=== PATIENT | male | born 1970 | race Caucasian/White ===

== ENCOUNTER 2020-05-27 19:41 | Emergency (ER) | payer MEDICAID ==
[~2020-05-27] VITALS: Ht 188 cm; Wt 83.9 kg
--- NOTE | 2020-05-27 20:00 | NUR ---
PATIENT CAME TO THE ER BED 7 C/O "FEELING SICK" PATIENT STATES THAT HE HAD DIARRHEA AND LOWER ABDOMINAL PAIN FOR THE PAST 3 x DAYS. PATIENT STATES THAT HE PREVIOUSLY HAD COVID AND HAD NO SYMPTOMS. PATIENT DENIES ANYONE LIVING UNDER THE SAME ROOF HIM WITH THE SAME SYMPTOMS. PATIENT IS AAOX4. BREATHING EVENLY AND UNALBORED ON ROOM AIR AT 98%. PATIENT IS CONNECTED TO THE MONITOR.
--- NOTE | 2020-05-27 20:11 | NUR ---
PATIENT'S BLOOD COLLECTED AND SENT TO THE LAB.
[2020-05-27] MEDS ORDERED: ONDANSETRON HCL/PF 4 MG/2 ML VIAL ONE (20:12)
[2020-05-27 20:20] LABS: BASOPHILS % (AUTO) 0.4 % (0.0-2.0); EOSINOPHILS % (AUTO) 3.4 % (0.0-6.0); HEMATOCRIT 37 % (39-51); HEMOGLOBIN 12.6 g/dL (13.5-17.5); LYMPHOCYTES # (AUTO) 0.9 /CMM (0.8-4.8); LYMPHOCYTES % (AUTO) 22.1 % (20.0-44.0); MEAN CORPUSCULAR HGB CONC 34 g/dl (31.0-36.0); MEAN CORPUSCULAR VOLUME 91 fL (80-96); MONOCYTES # (AUTO) 0.3 /CMM (0.1-1.30); MONOCYTES % (AUTO) 7.9 % (2.0-12.0); NEUTROPHILS # (AUTO) 2.7 /CMM (1.8-8.9); NEUTROPHILS % (AUTO) 66.2 % (43.0-81.0); PLATELET COUNT (AUTO) 231 /CMM (150-450); RED BLOOD CELL COUNT(AUTO) 4.05 MIL/uL (4.5-6.0); WHITE BLOOD COUNT (AUTO) 4.1 K/uL (4.3-11.0)
[2020-05-27] MEDS ORDERED: ONDANSETRON HCL/PF 4 MG/2 ML VIAL IVP ONE (20:30)
[2020-05-27] MEDS ORDERED: IV NS 0.9% 1,000 ML BAG IV ONE (20:30)
[2020-05-27 20:36] LABS: ALANINE AMINOTRANSFERASE 28 U/L (12-78); ALBUMIN 3.4 g/dL (3.4-5.0); ALKALINE PHOSPHATASE 58 U/L (46-116); ASPARTATE AMINOTRANSFERASE 22 U/L (15-37); BILIRUBIN,DIRECT 0.1 mg/dL (0.0-0.2); BILIRUBIN,TOTAL 0.2 mg/dL (0.2-1.0); CALCIUM, SERUM 8.8 mg/dL (8.5-10.1); CARBON DIOXIDE 31 mmol/L (21-32); CHLORIDE 104 mmol/L (98-107); CREATININE 0.7 mg/dL (0.6-1.3); GLUCOSE 120 mg/dL (74-106); LIPASE 82 U/L (73-393); POTASSIUM 3.6 mmol/L (3.5-5.1); SODIUM SERUM 143 mmol/L (136-145); TOTAL PROTEIN, SERUM 6.9 g/dL (6.4-8.2); UREA NITROGEN, BLOOD 20 mg/dL (7-18)
[2020-05-27] MEDS ORDERED: DOXY100C2 PO (22:09)
[2020-05-27] MEDS ORDERED: ONDA4TAB11 PO (22:09)
[2020-05-27 23:31] VITALS: BP 125/76
== END 2020-05-27 22:32 | disposition home or self-care (01) ==
LOC: ER 19:41
DX: B34.9 Viral infection, unspecified (principal); R11.2 Nausea with vomiting, unspecified; R19.7 Diarrhea, unspecified; Z20.822 Contact with and (suspected) exposure to COVID-19; R05 Cough; R91.8 Other nonspecific abnormal finding of lung field; R03.0 Elevated blood-pressure reading, without diagnosis of hypertension
CPT/HCPCS: 36415; 71045; 74176; 80048; 80076; 83605; 83690; 84484; 85025; 87040 ×2; 87426; 93005; 96361; 96374; 99285; C9803 ×2; J2405; J7030; U0003

== ENCOUNTER 2020-09-20 01:31 | Emergency (ER) | payer MEDICAID ==
[~2020-09-20] VITALS: Ht 188 cm; Wt 83.9 kg
[~2020-09-20 01:31] MED LIST: DOXY100C2 PO; ONDA4TAB11 PO
[2020-09-20 01:58] VITALS: BP 158/112
--- NOTE | 2020-09-20 02:00 | NUR ---
PATIENT BIBSELF C/O NAUSEA +HEADACHE S/P SLIP AND FALL ON ST[place] HILL WHILE HELPING FRIEND. -HEAD TRAUMA +C/O BACK PAIN. PATIENT IS A/O X 4, RR EVEN AND UNLABORED, NO SIGNS OF SOB NOTED, PATIENT VSS, CONNECTED TO MONITOR.
[2020-09-20] MEDS ORDERED: KETOROLAC TROMETHAMINE INJ 30 MG/ML VIAL ONE (02:13)
--- NOTE | 2020-09-20 02:17 | NUR ---
PATIENT TAKEN TO CT
--- NOTE | 2020-09-20 02:22 | NUR ---
PATIENT RETURNED FROM CT
[2020-09-20] MEDS: KETOROLAC TROMETHAMINE INJ 30 MG/ML VIAL IM ONE (02:32)
[2020-09-20] MEDS ORDERED: ONDA4TAB11 PO (02:48)
[2020-09-20] MEDS ORDERED: IBUP-1957 PO (02:48)
[2020-09-20] MEDS ORDERED: CYCL5TAB PO (02:48)
--- NOTE | 2020-09-20 03:00 | NUR ---
Johnathan mcdonald in [facility] - 09/20/20 at 0300 by OZZY DC
--- NOTE | 2020-09-20 03:01 | NUR ---
Patient discharged to home in stable condition. Written and verbal after care instructions given. Patient verbalizes understanding of instruction.
--- NOTE | 2020-09-20 03:01 | NUR ---
Patient is getting picked up by an [employer].
== END 2020-09-20 03:03 | disposition home or self-care (01) ==
LOC: ER 01:31
DX: S09.8XXA Other specified injuries of head, initial encounter (principal); F07.81 Postconcussional syndrome; I10 Essential (primary) hypertension; Z79.899 Other long term (current) drug therapy; W01.0XXA Fall on same level from slipping, tripping and stumbling without subsequent striking against object, initial encounter; Y93.89 Activity, other specified; Y92.89 Other specified places as the place of occurrence of the external cause; Y99.8 Other external cause status
CPT/HCPCS: 70450; 72125; 96372; 99285; J1885

== ENCOUNTER 2020-09-24 22:41 | Emergency (ER) | payer MEDICAID, OTHER ==
[~2020-09-24] VITALS: Ht 190.5 cm; Wt 83.9 kg
[2020-09-24 22:41] VITALS: BP 165/106
[~2020-09-24 22:41] MED LIST changes: +CYCL5TAB PO; +IBUP-1957 PO
[2020-09-24 23:45] LABS: ABG BASE EXCESS 3.2 mmol/L; ABG OXYGEN SATURATION 97.3 % (92.0-98.5); ABG PCO2 39.1 mmHg (35.0-45.0); ABG PH 7.459 (7.350-7.450); MetHb 0.5 % (0.0-1.5); O2Hb 95.8 % (94.0-97.0); SITE, ABG Right Radial; VENT MODE, BG Room Air
== END 2020-09-25 00:34 | disposition home or self-care (01) ==
LOC: ER 22:50
DX: T59.811A Toxic effect of smoke, accidental (unintentional), initial encounter (principal); I10 Essential (primary) hypertension; Y92.89 Other specified places as the place of occurrence of the external cause
CPT/HCPCS: 36600

== ENCOUNTER 2020-10-30 16:30 | Emergency (ER) | payer OTHER ==
[~2020-10-30] VITALS: Ht 177.8 cm; Wt 74.8 kg
[2020-10-30 17:21] VITALS: BP 136/105
[2020-10-30] MEDS ORDERED: BENZ-13 PO (17:55)
[2020-10-30] MEDS ORDERED: GUAI5SYR PO (17:55)
--- NOTE | 2020-10-30 18:21 | NUR ---
COVID SWAB DONE & SENT TO LAB. Patient discharged to home in stable condition. Written and verbal after care instructions given. Patient verbalizes understanding of instruction.
== END 2020-10-30 18:22 | disposition home or self-care (01) ==
LOC: ER 16:37
DX: J06.9 Acute upper respiratory infection, unspecified (principal); Z20.822 Contact with and (suspected) exposure to COVID-19; F17.210 Nicotine dependence, cigarettes, uncomplicated; I10 Essential (primary) hypertension
CPT/HCPCS: 99283; 99406; C9803; U0003

== ENCOUNTER 2022-05-01 19:56 | Emergency (ER) | payer OTHER ==
[~2022-05-01] VITALS: Ht 188 cm; Wt 88.5 kg
[~2022-05-01 19:56] MED LIST changes: +BENZ-13 PO; +GUAI5SYR PO
--- NOTE | 2022-05-01 20:24 | NUR ---
BIBFRIEND. SYNCOPE EPISODE X 1 @ 1950, NO BLOOD THINNER USE. ENDORSES L SIDED C/P RADIATING TO L ARM PRIOR TO SYNCOPAL EPISODE X1400. STATES HE HAS HAD PAIN LIKE THIS IN THE PAST AND WAS DX WITH STRESS INDUCED ANXIETY. STATES HE HAS HAD RECENT STRESSORS IN HIS LIFE. AWAKE AND ALERTX4 BREATHING UNLABORED. V/S WNL.
--- NOTE | 2022-05-01 20:32 | NUR ---
20G IV STARTED AT . BLOOD DRAWN AND SENT TO LAB
[2022-05-01 20:46] LABS: BASOPHILS % (AUTO) 0.6 % (0.0-2.0); EOSINOPHILS % (AUTO) 2.3 % (0.0-6.0); HEMATOCRIT 39 % (39-51); HEMOGLOBIN 12.6 g/dL (13.5-17.5); LYMPHOCYTES # (AUTO) 0.8 K/uL (0.8-4.8); LYMPHOCYTES % (AUTO) 11.5 % (20.0-44.0); MEAN CORPUSCULAR HGB CONC 33 g/dl (31.0-36.0); MEAN CORPUSCULAR VOLUME 89 fL (80-96); MONOCYTES # (AUTO) 0.5 K/uL (0.1-1.30); NEUTROPHILS # (AUTO) 5.3 K/uL (1.8-8.9); NEUTROPHILS % (AUTO) 77.6 % (43.0-81.0); PLATELET COUNT (AUTO) 301 K/uL (150-450); RED BLOOD CELL COUNT(AUTO) 4.36 MIL/uL (4.5-6.0); WHITE BLOOD COUNT (AUTO) 6.8 K/uL (4.3-11.0)
[2022-05-01 21:13] LABS: CALCIUM, SERUM 8.7 mg/dL (8.5-10.1); CARBON DIOXIDE 28 mmol/L (21-32); CHLORIDE 102 mmol/L (98-107); CREATININE 0.8 mg/dL (0.6-1.3); GLUCOSE 107 mg/dL (74-106); POTASSIUM 3.8 mmol/L (3.5-5.1); SODIUM SERUM 137 mmol/L (136-145); UREA NITROGEN, BLOOD 14 mg/dL (7-18)
[2022-05-01] MEDS ORDERED: IV NS 0.9% 1,000 ML IV ONE (21:30)
[2022-05-01] MEDS ORDERED: ONDA4TAB5 PO (23:20)
[2022-05-01] MEDS ORDERED: FLUO40CA8 PO (23:29)
--- NOTE | 2022-05-01 23:36 | NUR ---
Patient discharged to home in stable condition. Written and verbal after care instructions given. Patient verbalizes understanding of instruction.IV removed. Catheter intact and site benign. Pressure and 4x4 applied to site. No bleeding noted.
[2022-05-01 23:39] VITALS: BP 144/57
== END 2022-05-01 23:40 | disposition home or self-care (01) ==
LOC: ER 19:58
DX: R55 Syncope and collapse (principal); I10 Essential (primary) hypertension; F17.200 Nicotine dependence, unspecified, uncomplicated; Z79.899 Other long term (current) drug therapy
CPT/HCPCS: 99285; 96360; 70450; 71045; 93005 ×3; 85025; 80048; 36415; 84484 ×2; J7030

== ENCOUNTER 2022-10-12 12:47 | Emergency (ER) | payer OTHER ==
[~2022-10-12] VITALS: Ht 188 cm; Wt 88.5 kg
[~2022-10-12 12:47] MED LIST changes: +FLUO40CA8 PO; +ONDA4TAB5 PO
--- NOTE | 2022-10-12 12:51 | NUR ---
SPOKE TO FRIEND [phone] SAID SHE CAN PICK HIM UP BEFORE 1515 OR AFTER 1730 LOC (FRIEND) [phone]
--- NOTE | 2022-10-12 12:55 | NUR ---
PATIENT CAME WITH COMPLAINTS OF SYNCOPAL ATTACK OUTSIDE OF EMERGENCY DEPARTMENT . NOT ALERT AND NOT ORIENTED.VERY DIFFICULTY TO GET ANSWER FOR QUESTIONS. PATIENT CONNECTED TO POOL PLAYER AND PULSE OXYMETER.BREATHING ON ROOM AIR WITH OUT ANY DISTRESS.ALL SAFTEY PRECAUTIONS AT BED SIDE.AWAITING MD FOR EVAL.
--- NOTE | 2022-10-12 12:56 | NUR ---
IV INSERTED ON LT AC NO 18 G ,BLOOD COLLECTED AND SEND TO LAB.
--- NOTE | 2022-10-12 12:57 | NUR ---
DR HEARD AT BED SIDE
--- NOTE | 2022-10-12 13:01 | NUR ---
BLOOD ZOHAIB 159, AWARE
[2022-10-12 13:12] LABS: BASOPHILS % (AUTO) 0.3 % (0.0-2.0); EOSINOPHILS % (AUTO) 4.2 % (0.0-6.0); HEMATOCRIT 39 % (39-51); HEMOGLOBIN 12.6 g/dL (13.5-17.5); LYMPHOCYTES # (AUTO) 0.4 K/uL (0.8-4.8); LYMPHOCYTES % (AUTO) 5.2 % (20.0-44.0); MEAN CORPUSCULAR HGB CONC 33 g/dl (31.0-36.0); MEAN CORPUSCULAR VOLUME 86 fL (80-96); MONOCYTES # (AUTO) 0.2 K/uL (0.1-1.30); MONOCYTES % (AUTO) 2.3 % (2.0-12.0); NEUTROPHILS # (AUTO) 6.4 K/uL (1.8-8.9); PLATELET COUNT (AUTO) 297 K/uL (150-450); RED BLOOD CELL COUNT(AUTO) 4.51 MIL/uL (4.5-6.0); WHITE BLOOD COUNT (AUTO) 7.3 K/uL (4.3-11.0)
[2022-10-12 13:22] LABS: CALCIUM, SERUM 9.3 mg/dL (8.5-10.1); CARBON DIOXIDE 30 mmol/L (21-32); CHLORIDE 103 mmol/L (98-107); CREATININE 0.8 mg/dL (0.6-1.3); GLUCOSE 146 mg/dL (74-106); POTASSIUM 3.7 mmol/L (3.5-5.1); SODIUM SERUM 137 mmol/L (136-145); UREA NITROGEN, BLOOD 20 mg/dL (7-18)
--- NOTE | 2022-10-12 13:22 | NUR ---
DR HEARD AT BED SIDE.NOW HE IS ANSWERING TO QUESTIONS .BUT CONFUSED.
--- NOTE | 2022-10-12 13:25 | NUR ---
PATIENT WANTS TO LEAVE THE HOSPITAL ,DR HEARD EXPLAIN TO THE PATIENT FOR THE TREATS OF HIS CONDITION
--- NOTE | 2022-10-12 13:30 | NUR ---
PATIENT IS FULLY CONCIOUS AND ORIENTED.TALKING NICELY .
[2022-10-12 13:34] LABS: ALANINE AMINOTRANSFERASE 13 U/L (12-78); ALBUMIN 3.5 g/dL (3.4-5.0); ALKALINE PHOSPHATASE 81 U/L (46-116); ASPARTATE AMINOTRANSFERASE 13 U/L (15-37); BILIRUBIN,DIRECT 0.1 mg/dL (0.0-0.2); BILIRUBIN,TOTAL 0.2 mg/dL (0.2-1.0); TOTAL PROTEIN, SERUM 7.6 g/dL (6.4-8.2)
--- NOTE | 2022-10-12 14:15 | NUR ---
IV removed. Catheter intact and site benign. Pressure and 4x4 applied to site. No bleeding noted.
[2022-10-12 14:24] VITALS: BP 142/94; TEMP 98.3; O2SAT 97
--- NOTE | 2022-10-12 14:24 | NUR ---
Patient discharged to home in stable condition. Written and verbal after care instructions given. Patient verbalizes understanding of instruction.
== END 2022-10-12 14:25 | disposition home or self-care (01) ==
LOC: ER 12:58
DX: R55 Syncope and collapse (principal); I10 Essential (primary) hypertension; F17.200 Nicotine dependence, unspecified, uncomplicated; Z79.899 Other long term (current) drug therapy; Z60.2 Problems related to living alone
CPT/HCPCS: 36415; 71045-TC; 80048-TC; 80076-TC; 83880; 84484-TC; 85025-TC

== ENCOUNTER 2023-11-18 22:25 | Emergency (ER) | payer MEDICAID, OTHER ==
[~2023-11-18] VITALS: Ht 175.3 cm; Wt 74.8 kg
[2023-11-18] MEDS ORDERED: IBUPROFEN 400 MG TABLET ONE (23:53)
[2023-11-18] MEDS: IBUPROFEN 400 MG TABLET PO ONE (23:54)
[2023-11-18 23:56] VITALS: BP 132/84; TEMP 98.5; O2SAT 99
== END 2023-11-18 23:56 | disposition home or self-care (01) ==
LOC: ER 22:32
DX: S39.012A Strain of muscle, fascia and tendon of lower back, initial encounter (principal); F17.200 Nicotine dependence, unspecified, uncomplicated; Z60.2 Problems related to living alone; W10.8XXA Fall (on) (from) other stairs and steps, initial encounter; Y93.89 Activity, other specified; Y92.098 Other place in other non-institutional residence as the place of occurrence of the external cause; Y99.8 Other external cause status
CPT/HCPCS: 72131-TC